=== PATIENT | female | born 1975 | race Two or more races ===

== ENCOUNTER 2024-10-05 01:31 | Emergency (ER) | payer OTHER ==
[~2024-10-05] VITALS: Ht 165.1 cm; Wt 72.6 kg
[2024-10-05] MEDS ORDERED: ENDOMETRIN100 MG (01:44)
[2024-10-05] MEDS ORDERED: PROMETHAZINE HCL 50 MG/ML AMPUL IM STA (02:06)
[2024-10-05] MEDS ORDERED: FAMOTIDINE/PF 20 MG/2 ML VIAL IV PUSH STA (02:07)
[2024-10-05] MEDS ORDERED: 0.9 % SODIUM CHLORIDE 1,000 ML IV ONE (02:15)
[2024-10-05 02:41] LABS: BASO % 0.3 % (0.1-1.2); EOS # 0.29 (0.04-0.54); EOS % 4.5 % (0.7-7.0); LYMPH # 2.16 (1.18-3.74); LYMPH % 33.8 % (19.3-53.1); MEAN PLATELET VOLUME 10.40 fl (9.4-12.4); MONO # 0.68 (0.24-0.82); MONO % 10.6 % (4.7-12.5); NEUT # 3.22 (1.56-6.13); NEUT % 50.5 % (34.0-71.1); RED CELL DISTRIBUTION WIDTH 13.4 % (11.6-14.4)
[2024-10-05 02:58] LABS: GLUCOSE FASTING 116.0 mg/dL (65-100)
[2024-10-05 02:59] LABS: ALT/SGPT 24.0 U/L (12-78); AST/SGOT 21.0 U/L (15-37); BILIRUBIN TOTAL 0.16 mg/dL (0.3-1.2); BUN CREA RATIO 19.0 (7.0-25.0); CREATININE SERUM 0.72 mg/dL (0.55-1.02); GFR 85.4; GLOBULINA 3.6 G/DL (2.4-3.5); OSMOLALITY SERUM 283.0 MOSM/KG (275-295)
[2024-10-05 05:54] LABS: COCAINE NEGATIVE (NEGATIVE); METHADONE NEGATIVE (NEGATIVE); OPIATES NEGATIVE (NEGATIVE); THC ( Cannabinoids) POSITIVE (NEGATIVE)
== END 2024-10-05 06:11 ==
LOC: ER 05:05
PROVIDERS: General Practice
DX: F19.929 Other psychoactive substance use, unspecified with intoxication, unspecified (principal); R00.2 Palpitations
CPT/HCPCS: 36415; 93005; 96365; 96366; 96372; 99282; J2550; J3490; J7030